=== PATIENT | female | born 1985 | race Caucasian/White ===

== ENCOUNTER 2019-03-29 21:50 | Emergency (ER) | payer SELFPAY ==
[2019-03-29 22:22] VITALS: BP 143/98
[2019-03-29] MEDS ORDERED: Lidocaine 1% MPF ** 5 ML VIAL IM ONE (22:33)
[2019-03-29] MEDS ORDERED: cefTRIAXone VIAL(*) 250 MG VIAL IM ONE (22:33)
--- NOTE | 2019-03-29 22:33 | UC ---
Complaint Female HPI - HPI Summary HPI Summary: The patient is a 33-year-old female that presents here with a 1-2 week history of foul-smelling urine, vaginal discharge, pelvic pain, dyspareunia, and general malaise. She has felt feverish at times. She has had nausea but no vomiting. Her pelvic pain is worse when she ambulates. Has had foul smelling urine and vag discharge. States her boyfriend currently has bilateral testicular pain and swelling - History Of Current Complaint Chief Complaint: UCGU Stated Complaint: PERSONAL Time Seen by Provider: 03/29/19 22:00 Hx Obtained From: Patient Hx Last Menstrual Period: last week Onset/Duration: Gradual Onset, Lasting Weeks Timing: Constant Severity Initially: Mild Severity Currently: Moderate Pain Intensity: 5 Pain Scale Used: 0-10 Numeric Aggravating Factor(s): [place] Associated Signs And Symptoms: Positive: Fever - odilia, Back Pain, Vaginal Discharge, Nausea, Genital Swelling. 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 Other History Of: Hepatitis C - Surgical History Surgical History: Yes Surgery Procedure, Year, and Place: DNC - Family History Known Family History: Positive: Non-Contributory - Social History Alcohol Use: None Substance Use Type: None Smoking Status (MU): Never Smoked Tobacco Review of Systems All Other Systems Reviewed And Are Negative: Yes Constitutional: Positive: Fever, Chills Skin: Positive: Negative Eyes: Positive: Negative ENT: Positive: Negative Respiratory: Positive: Negative Cardiovascular: Positive: Negative Genitourinary: Positive: Dysuria, Frequency, Other - labial swelling/ vaginal d/ c Motor: Positive: Negative Neurovascular: Positive: Negative Musculoskeletal: Positive: Negative Neurological: Positive: Negative Psychological: Positive: Negative Physical Exam Triage Information Reviewed: Yes Appearance: Well-Appearing, No Pain Distress, Well-Nourished Vital Signs: Initial Vital Signs Temp 100.2 F 03/29/19 22:18 Pulse 109 03/29/19 22:18 Resp 18 03/29/19 22:18 BP 143/98 03/29/19 22:18 Pulse Ox 100 03/29/19 22:18 Vital Signs Reviewed: Yes Eyes: Positive: Conjunctiva Clear ENT: Positive: Hearing grossly normal. Negative: Nasal congestion, Nasal drainage, Trismus, Muffled voice, Hoarse voice Neck: Positive: Supple, Nontender, No Lymphadenopathy Respiratory: Positive: Lungs clear, Normal breath sounds, No respiratory distress, No accessory muscle use Cardiovascular: Positive: RRR, Tachycardia Abdomen Description: Positive: Other: - RLQ>LLQ tenderness. Negative: Nontender , CVA Tenderness (R), CVA Tenderness (L), Distended Pelvic Exam: Positive: Other - PT refuses Musculoskeletal: Positive: ROM Intact, No Edema Neurological: Positive: Alert Psychological Exam: Normal Skin Exam: Normal Diagnostics - Laboratory Lab Results: UA ++ leuks Complaint Female Dx - Course Course Of Treatment: pt refuses pelvic exam or transfer to the hospital see does desire blood work aware that I am making a logical guess as to her diagnosis - Differential Dx/Diagnosis Provider Diagnosis: PID (acute pelvic inflammatory disease), Elevated BP without diagnosis of hypertension Discharge ED - Sign-Out/Discharge Documenting (check all that apply): Patient Departure All imaging exams completed and their final reports reviewed: No Studies - Discharge Plan Condition: Guarded Disposition: AGAINST MEDICAL ADVICE Prescriptions: DOXYcycline CAP(*) [DOXYcycline 100MG CAP(*)] 100 mg PO BID #28 cap metroNIDAZOLE [Flagyl 500 MG TAB] 500 mg PO BID #14 tab Patient Education Materials: Pelvic Inflammatory Disease (ED) Referrals: No Primary Care Phys,NOPCP [Primary Care Provider] - Additional Instructions: You have refused a pelvic exam which is necessary exam for me to determine the cause of your symptoms I suspect PID but it is impossible for me to know without an exam Other possible illness may be causing your symptoms You really should be evaluated in an EMERGENCY ROOM Please seek care if symptoms worsen Increased pain/increased fever/vomiting or if not better in 2 days please see you MD in [place] in 1-2 days for reevaluation blood work and other tests are pending - Billing Disposition and Condition Condition: GUARDED Disposition: Against Medical Advice
[2019-03-31 13:27] LABS: Chlamydia trachomatis NAA Negative (Negative); Neisseria gonorrhoeae (GC) NAA Negative (Negative)
--- NOTE | 2019-03-31 16:20 | UC ---
- Progress Note Progress Note: Seen for suspected PID. Please advise that Chlamydia and GC are negative. She does have an E. coli UTI, sensitivity is pending. This should be covered by the doxycycline. Ensure that she is feeling improved on present med regime. Course/Dx - Diagnoses Provider Diagnoses: PID (acute pelvic inflammatory disease), Elevated BP without diagnosis of hypertension Discharge ED - Sign-Out/Discharge Documenting (check all that apply): Post-Discharge Follow Up All imaging exams completed and their final reports reviewed: No Studies - Discharge Plan Condition: Guarded Disposition: AGAINST MEDICAL ADVICE Prescriptions: DOXYcycline CAP(*) [DOXYcycline 100MG CAP(*)] 100 mg PO BID #28 cap metroNIDAZOLE [Flagyl 500 MG TAB] 500 mg PO BID #14 tab Patient Education Materials: Pelvic Inflammatory Disease (ED) Referrals: No Primary Care Phys,NOPCP [Primary Care Provider] - Additional Instructions: You have refused a pelvic exam which is necessary exam for me to determine the cause of your symptoms I suspect PID but it is impossible for me to know without an exam Other possible illness may be causing your symptoms You really should be evaluated in an EMERGENCY ROOM Please seek care if symptoms worsen Increased pain/increased fever/vomiting or if not better in 2 days please see you MD in [place] in 1-2 days for reevaluation blood work and other tests are pending - Billing Disposition and Condition Condition: GUARDED Disposition: Against Medical Advice
== END 2019-03-29 23:00 | disposition left against medical advice (07) ==
LOC: UCEAST 21:50
DX: N73.9 Female pelvic inflammatory disease, unspecified (principal); R03.0 Elevated blood-pressure reading, without diagnosis of hypertension
CPT/HCPCS: 81003; 84702; 87077; 87086; 87186; 87491; 87591; 99202; G0463; J0696

== ENCOUNTER 2019-06-09 07:54 | Emergency (ER) | payer SELFPAY ==
[2019-06-09 08:10] VITALS: BP 135/63
--- NOTE | 2019-06-09 08:13 | UC ---
Rectal Pain HPI - HPI Summary HPI Summary: 33 yo female presents with ?hemorrhoid. She tells me that when her son was born 6 years ago she developed a hemorrhoid. Since that time has been intermittently painful and she feels a small bulge at her anus. She usually "pushes" this back in and it feels better. Over the last 2 days has had pain and is unable to push this back in. Painful to sit and have a BM. States no blood in stool. Has been using OTC lidocaine spray and prep H with no relief. - History Of Current Complaint Stated Complaint: HEMMRHOID Time Seen by Provider: 06/09/19 08:08 Hx Obtained From: Patient Hx Last Menstrual Period: 2 days ago Severity Initially: Mild Severity Currently: Moderate Pain Intensity: 4 Pain Scale Used: 0-10 Numeric - Allergies/Home Medications Allergies/Adverse Reactions: Allergies Allergy/AdvReac Type Severity Reaction Status Date / Time morphine Allergy Itching Verified 06/09/19 08:15 PMH/Surg Hx/FS Hx/Imm Hx - Additional Past Medical History Additional PMH: Molar Other History Of: Hepatitis C - Surgical History Surgical History: Yes Surgery Procedure, Year, and Place: DNC - Family History Known Family History: Positive: Non-Contributory - Social History Lives: With Family Alcohol Use: None Substance Use Type: None Smoking Status (MU): Light Every Day Tobacco Smoker Amount Used/How Often: 1/2 PPD Review of Systems All Other Systems Reviewed And Are Negative: No Constitutional: Positive: Negative Skin: Positive: Negative Respiratory: Positive: Negative Cardiovascular: Positive: Negative Gastrointestinal: Positive: Negative Genitourinary: Positive: Other - Rectal pain Musculoskeletal: Positive: Negative Neurological: Positive: Negative Psychological: Positive: Negative Physical Exam - Summary Physical Exam Summary: GENERAL: NAD. WDWN. No pain distress. SKIN: No rashes, sores, lesions, or open wounds. ABDOMEN: Soft. NTTP. Bowel sounds present RECTAL: Approx 1.0cm moderately thrombosed hemorrhoid at 10 o'clock position. TTP. No erythema, induration, or drainage. Unable to perform vault exam due to degree of pain. NEURO: Alert. PSYCH: Age appropriate behavior. Triage Information Reviewed: Yes Vital Signs: Initial Vital Signs Temp 99.5 F 06/09/19 08:01 Pulse 91 06/09/19 08:01 Resp 16 06/09/19 08:01 BP 135/63 06/09/19 08:01 Pulse Ox 98 06/09/19 08:01 Vital Signs Reviewed: Yes Rectal Pain Course/Dx - Course Course Of Treatment: Hemorrhoid. Will rx for LET solution and hydrocortisone cream. Advised to try miralax and warm sitz bath. F/u with gen surg for further treatment - Differential Dx/Diagnosis Provider Diagnosis: Hemorrhoids, external Discharge ED - Sign-Out/Discharge Documenting (check all that apply): Patient Departure All imaging exams completed and their final reports reviewed: No Studies - Discharge Plan Condition: Stable Disposition: HOME Prescriptions: Hydrocortisone 2.5% CREAM(NF) 1 applic TOPICAL BID #1 tube Ibuprofen TAB* [Motrin TAB* 800 MG] 800 mg PO Q6H PRN #30 tab PRN Reason: Pain - Moderate Lidocaine/Epineph/Tetraca GREGG [LET Solution] 2 ml TOPICAL BID PRN #20 ml PRN Reason: Pain - Mild Patient Education Materials: Hemorrhoids (ED) Referrals: No Primary Care Phys,NOPCP [Primary Care Provider] - Anjelica Waller MD [Medical Doctor] - As Soon As Possible Additional Instructions: If you develop a fever, shortness of breath, chest pain, new or worsening symptoms - please call your PCP or go to the ED immediately. Try warm sitz baths I recommend that you call a surgeon at the number below to schedule an appointment for further treatment of your hemorrhoid Try taking a stool softener such as miralax daily - Billing Disposition and Condition Condition: STABLE Disposition: Home
== END 2019-06-09 08:42 | disposition home or self-care (01) ==
LOC: UCEAST 07:54
DX: K64.4 Residual hemorrhoidal skin tags (principal); F17.210 Nicotine dependence, cigarettes, uncomplicated; Z88.5 Allergy status to narcotic agent
CPT/HCPCS: 99212; G0463